=== PATIENT | female | born 1980 | race African-American/Black ===

== ENCOUNTER 2018-07-27 08:39 | Emergency (ER) | payer OTHER ==
[~2018-07-27] VITALS: Ht 167.6 cm; Wt 97.7 kg
[~2018-07-27 08:39] MED LIST: AMOXICILLIN500 MG OR; AMOXICILLIN500 MG PO; BACTRIM DS1 TAB PO; CONCEPT OB PO; DOXYCYC MONO100 MG OR; KEFLEX500 MG PO; LORTAB 10 PO; MACROBID100 MG PO; METROGEL VAG0.75 % VA; MONISTAT 72 % VA; NO; NO MEDS; TUBERSOL5 MG/0.1 M ID
[2018-07-27] MEDS ORDERED: DOXYCYC MONO100 M2 PO (08:53)
[2018-07-27 08:56] VITALS: BP 123/74
== END 2018-07-27 09:02 | disposition home or self-care (01) ==
LOC: ED 08:39
DX: J40 Bronchitis, not specified as acute or chronic (principal); R05 Cough